=== PATIENT | male | born 1990 | race Caucasian/White ===

== ENCOUNTER → 2017-02-12 | Outpatient (CLI) | payer MEDICAID | END | disposition home or self-care (01) | LOC: CFH 08:29 | PROVIDERS: ATTEND Family Medicine | DX: E04.1 Nontoxic single thyroid nodule (principal); R68.89 Other general symptoms and signs | CPT/HCPCS: 76536 ==

== ENCOUNTER 2018-07-20 17:58 | Emergency (ER) | payer MEDICAID ==
[~2018-07-20] VITALS: Ht 170.2 cm; Wt 73.1 kg
[2018-07-20 18:13] VITALS: BP 116/41
[2018-07-20] MEDS ORDERED: EMTR1TAB8 PO (18:27)
[2018-07-20 19:01] LABS: RAPID INFLUENZA A Negative (Negative); RAPID INFLUENZA B Negative (Negative)
--- NOTE | 2018-07-20 19:23 | NUR ---
Patient/Caregiver given discharge instructions and they have confirmed that they understand the instructions. Patient ambulatory with steady gait.
== END 2018-07-20 19:25 | disposition home or self-care (01) ==
LOC: ED 18:34
DX: B34.9 Viral infection, unspecified (principal)
CPT/HCPCS: 87081; 87400; 87880; 99283

== ENCOUNTER 2018-10-05 08:55 | Emergency (ER) | payer MEDICAID ==
[~2018-10-05] VITALS: Ht 170.2 cm; Wt 65.0 kg
[2018-10-05 08:58] VITALS: BP 110/70
== END 2018-10-05 10:29 | disposition home or self-care (01) ==
LOC: ED 09:13
DX: A51.0 Primary genital syphilis (principal); B37.9 Candidiasis, unspecified
CPT/HCPCS: 96372; 99283; J0561

== ENCOUNTER 2019-09-28 14:55 | Outpatient (CLI) | payer MEDICAID ==
[~2019-09-28 14:55] MED LIST: EMTR1TAB8 PO
== END 2019-09-28 23:59 | disposition home or self-care (01) ==
LOC: LAB 14:55 → RAD 23:59
PROVIDERS: ATTEND Physician Assistant
DX: Z11.3 Encounter for screening for infections with a predominantly sexual mode of transmission (principal); N43.2 Other hydrocele; N50.3 Cyst of epididymis; N50.89 Other specified disorders of the male genital organs
CPT/HCPCS: 76870; 93975

== ENCOUNTER 2020-05-06 07:47 | Outpatient (CLI) | payer MEDICAID | END 2020-05-06 23:59 | disposition home or self-care (01) | LOC: RAD 07:47 | PROVIDERS: ATTEND Urology | DX: I86.1 Scrotal varices (principal); N43.3 Hydrocele, unspecified; N45.1 Epididymitis | CPT/HCPCS: 76870 ==

== ENCOUNTER 2020-06-25 07:49 | Emergency (ER) | payer MEDICAID ==
[~2020-06-25] VITALS: Ht 170.2 cm; Wt 84.3 kg
[2020-06-25 07:52] VITALS: BP 122/77
== END 2020-06-25 08:29 | disposition home or self-care (01) ==
LOC: ED 08:20
DX: S62.636D Displaced fracture of distal phalanx of right little finger, subsequent encounter for fracture with routine healing (principal); X58.XXXD Exposure to other specified factors, subsequent encounter
CPT/HCPCS: 99282